=== PATIENT | male | born 1970 ===

== ENCOUNTER → 2023-11-10 15:47 | Outpatient (CLI) | payer OTHER, SELFPAY ==
--- NOTE | ~2023-11-10 | MR_ITS ---
EXAMINATION: MR brain/brain stem wo con DATE: 11/10/2023 16:52 INDICATION: Headache. TECHNIQUE: Magnetic resonance imaging (MRI) of the brain and brainstem was performed without intraven ous contrast. COMPARISON: None. 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 There are scattered areas of nonspecific i ncreased T2-weighted signal intensity in the cerebral white matter, which is within normal limits for the patient's age. There is no intracranial hemorrhage, acute infarction, or abnormal intracranial m ass lesion. The ventricles are normal in size. The paranasal sinuses are clear. The orbits are normal . The mastoid air cells are normal. IMPRESSION: 1. Small old infarct in left cerebellum. Reviewed, dictated and finalized at location [facility]
== END ==
PROVIDERS: PCP Nurse Practitioner Family; Visit Provider Nurse Practitioner Family
DX: R51.9 Headache, unspecified (principal)
CPT/HCPCS: 70551